=== PATIENT | female | born 1980 | race African-American/Black ===

== ENCOUNTER 2018-04-18 14:26 | Inpatient (IN) | payer OTHER ==
[2018-04-18 15:00] VITALS: BMI 23.4
[2018-04-18 15:25] LABS: Amnisure Test RUPTURE DETECTED (No Rupture)
[2018-04-18 15:26] LABS: Amnisure Internal Control QC ACCEPTABLE (ACCEPTABLE)
[2018-04-18] MEDS ORDERED: Betamet Acet/Betamet Na Ph 30 MG/5 ML VIAL ONE (15:54)
[2018-04-18] MEDS ORDERED: Ondansetron HCl/PF 4 MG/2 ML Vial IVP PRN (16:03)
[2018-04-18] MEDS ORDERED: Promethazine HCl 25 MG/ML VIAL IM PRN (16:03)
[2018-04-18] MEDS: Betamet Acet/Betamet Na Ph 30 MG/5 ML VIAL IM SCH (16:05)
--- NOTE | 2018-04-18 16:17 | PDOC.LDHP ---
Labor and Delivery H&P Chief complaint: loss of fluid HPI: 37 yo BF presents c/o leakage of fluid since 9AM. Denies UCs or bleeding. Current gestational age (weeks): 31 Due date: 06/16/18 Dating criteria: last menstrual period Grav: 2 Para: 1 OB History Details: PNC with Dr. Frye. Empirically started on GDM diet 2* to previous history in 1st . Current complications: none Abnormal US findings: No Current medications: pre- vitamins Previous surgical history: none Allergies/Adverse Reactions: Allergies Allergy/AdvReac Type Severity Reaction Status Date / Time No Known Drug Allergies Allergy Verified 09/14/16 18:22 Social history: none - Physical Exam Vital signs reviewed and normal: yes General: NAD Heart: RRR Lungs: CTAB Abdomen: gravid Extremeties: no edema FHT: variability present [place] contractions every: no UCs seen - OB Labs Blood type: unknown RH: unknown Antibody Screen: unknown HIV: unknown RPR: unknown HEPSAg: unknown 1 hour GCT: unknown GBS: unknown - Assessment L&D Assessment: premature rupture of membranes (31 4/7 week IUP, amniosure is positive) - Plan Plan: admit to L&D, GBS antibiotic prophylaxis (Begin steroids for FLM and Amp/ Armand IV VP3, GBS, and GC, chlamydia pending Deliver for labor, chorioamnionitis. Dr. Frye notified.)
[2018-04-18 16:34] LABS: Mean Corpuscular HGB CONC 34.1 g/dL (32.0-36.0); Mean Corpuscular Hemoglobin 29.4 pg (27.0-31.0); Mean Corpuscular Volume 86.2 fL (78.0-98.0); Mean Platelet Volume 8.7 fL (7.4-10.4); Platelet Count 184 thou/uL (130-400); RBC Distribution Width 11.9 % (11.5-14.5); Red Blood Cell (RBC) Count 3.75 mill/uL (4.20-5.40); White Blood Cell (WBC) Count 9.8 thou/uL (4.8-10.8)
--- NOTE | 2018-04-18 17:12 | PDOC.EVN ---
Event Note - Event Note Event Note: No UCs seen. 1st dose of steroids given. WBC= 9.8. USG= vtx, 3 lbs, 10 oz., TRUPTI= 9.9. Pharmacy called to say E-micin is not available at this time. Cont. present management. Deliver for chorioamnionitis, distress or labor.
[2018-04-18 17:21] LABS: Syphilis Antibody Nonreactive (Nonreactive); Syphilis Antibody Index 0.02 S/CO (<1.00 Non-Reactive)
[2018-04-18 17:25] LABS: HBSAg Index 0.17 S/CO (0-0.99); Hep B Surf Ag Non-Reactive S/CO (NonReactive)
[2018-04-18] MEDS ORDERED: Erythromycin 250 MG in Sodium Chloride 0.9% 250 ML 250 ML IVPB SCH (18:00)
[2018-04-18] MEDS: Lactated Ringer's 1,000 ML IV SCH (18:08)
[2018-04-18] MEDS: Ampicillin 2 GM in Sodium Chloride 0.9% 100 ML IVPB SCH ×2 (18:08→23:51)
--- NOTE | 2018-04-18 18:16 | ULT ---
OB ULTRASOUND: HISTORY: Thirty-one week gestation. IUP. Premature rupture of membranes. COMPARISON: None. TECHNIQUE: Sagittal and transverse imaging of the gravid uterus is performed. FINDINGS: Single intrauterine gestation. Presentation is cephalic. Limited evaluation of the cervix due to sh adowing. Placental location is to the maternal right. The presence or absence of previa cannot be assessed on this exam. heart tones with a rate of 133 beats per minute. BIOMETRY: BPD: 8.11 cm (32 weeks 4 days) HEAD CIRCUMFERENCE: 28.78 cm (31 weeks 5 days) ABDOMINAL CIRCUMFERENCE: 26.55 cm (30 weeks 5 days) FEMUR LENGTH: 5.80 cm (30 weeks 2 days) AVERAGE AGE BY SONOGRAPHY: 31 weeks 1 day ESTIMATED DELIVERY DATE: 06/19/2018 ESTIMATED WEIGHT: 1643, plus or minus 243 g AMNIOTIC FLUID INDEX: 9.9 IMPRESSION: Single intrauterine gestation with heart tones. Average age by sonography is 31 weeks 1 day. Estimated weight is 1643 g, plus or minus 243 g. POS: [facility]
[2018-04-19] MEDS: metroNIDAZOLE 250 MG TAB PO SCH ×4 (02:06→21:31)
[2018-04-19] MEDS: Lactated Ringer's 1,000 ML IV SCH ×2 (02:45→16:51)
[2018-04-19] MEDS: Ampicillin 2 GM in Sodium Chloride 0.9% 100 ML IVPB SCH ×3 (05:51→18:13)
[2018-04-19] MEDS ORDERED: Azithromycin 1,000 MG in Sodium Chloride 0.9% 500 ML IVPB ONE (09:00)
[2018-04-19] MEDS: Betamet Acet/Betamet Na Ph 30 MG/5 ML VIAL IM SCH (16:44)
[2018-04-19] MEDS ORDERED: HumaLOG 300 UNITS/3 ML VIAL SC SCH (22:00)
[2018-04-19 22:35] LABS: Chlamydia by PCR Not Detected (NotDetected); GC by PCR Not Detected (NotDetected)
[2018-04-20] MEDS: Ampicillin 2 GM in Sodium Chloride 0.9% 100 ML IVPB SCH ×4 (00:22→18:09)
[2018-04-20] MEDS ORDERED: HumaLOG 300 UNITS/3 ML VIAL SC SCH ×2 (00:45→13:15)
[2018-04-20] MEDS: Lactated Ringer's 1,000 ML IV SCH ×5 (02:37→21:51)
[2018-04-20] MEDS: metroNIDAZOLE 250 MG TAB PO SCH ×3 (09:03→20:48)
[2018-04-20] MEDS: Zolpidem Tartrate 5 MG TAB PO PRN (21:50)
[2018-04-21] MEDS: Ampicillin 2 GM in Sodium Chloride 0.9% 100 ML IVPB SCH ×2 (00:28→05:53)
[2018-04-21] MEDS: Lactated Ringer's 1,000 ML IV SCH (05:52)
[2018-04-21] MEDS: metroNIDAZOLE 250 MG TAB PO SCH ×3 (09:14→20:55)
--- NOTE | 2018-04-21 14:18 | PDOC.APC ---
Antepartum Consult INGRID JOHNSON is a 37 year old female at [32 0/7] gestational weeks. She presented with premature rupture of membranes not in labor. She has received betamethasone x2 and antibiotics. complicated by gestational diabetes. I was asked by Dr Frye to speak with the patient regarding anticipated course for a baby prematurely as early as 32 weeks. I outlined that the timing and mode of delivery is a decision that will be made by Dr. Frye. Once the patient is taken for delivery, the resuscitation team will be present. The initial focus will be on respiratory stabilization and may include minimal assistance, CPAP or intubation with surfactant administration, more invasive respiratory support more likely if born more prematurely. I discussed that the patient will need to be admitted to the NICU in an isolette due to temperature instability associated with prematurity if born before 36 weeks. We will then obtain IV access (peripheral will be first line, umbilical if unable to obtain peripheral) as babies are at risk for hypoglycemia. We discussed that babies born are at higher risk for feeding intolerance, infection and jaundice. I discussed that breastmilk is the best nutrition for babies and she is strongly encouraged to pump after delivery. Mother plans to breastfeed. We discussed that some premature babies need NG/OG tubes while learning how to eat by mouth. I explained that the duration of hospital stay will be determined on the clinical course of the baby. I outlined the milestones that needed to be achieved to ensure safe discharge home. She had the opportunity to ask questions and wanted to know about visitation. I explained that parents are welcome to visit 24/7 and skin to skin with kangaroo care is encouraged. Since there is not a plan currently to deliver at a certain gestation, we discussed that if she delivers at or after 36 weeks the baby would be admitted to the well baby nursery (unless other indication for NICU admission) and receive routine care. Please contact our service again if additional questions arise. I spent 20 minutes in consultation and coordination of care for this patient. Labs: Ante Labs Blood Type O POSITIVE 04/18/18 16:30 Hep Bs Antigen Non-Reactive S/CO (NonReactive) 04/18/18 16:30 Syphilis Ab negative
[2018-04-21] MEDS: AMOXicillin 250 MG CAP PO SCH (18:39)
[2018-04-21] MEDS: Zolpidem Tartrate 5 MG TAB PO PRN (23:05)
[2018-04-22] MEDS: AMOXicillin 250 MG CAP PO SCH ×4 (02:10→20:49)
[2018-04-22] MEDS: metroNIDAZOLE 250 MG TAB PO SCH ×3 (09:16→20:49)
[2018-04-23] MEDS: AMOXicillin 250 MG CAP PO SCH ×3 (09:11→20:51)
[2018-04-23] MEDS: metroNIDAZOLE 250 MG TAB PO SCH ×3 (09:13→20:51)
[2018-04-23] MEDS: Ampicillin 2 GM in Sodium Chloride 0.9% 100 ML IVPB SCH (11:27)
[2018-04-24] MEDS: metroNIDAZOLE 250 MG TAB PO SCH ×3 (09:21→21:30)
[2018-04-24] MEDS: AMOXicillin 250 MG CAP PO SCH ×3 (09:22→21:30)
[2018-04-25] MEDS: metroNIDAZOLE 250 MG TAB PO SCH ×3 (09:40→21:25)
[2018-04-25] MEDS: AMOXicillin 250 MG CAP PO SCH ×3 (09:40→21:25)
[2018-04-26] MEDS: metroNIDAZOLE 250 MG TAB PO SCH (09:13)
[2018-04-26] MEDS: AMOXicillin 250 MG CAP PO SCH ×3 (09:13→21:00)
[2018-04-27] MEDS: AMOXicillin 250 MG CAP PO SCH ×3 (09:50→21:20)
[2018-04-28] MEDS: AMOXicillin 250 MG CAP PO SCH ×3 (09:05→21:32)
[2018-04-29] MEDS: AMOXicillin 250 MG CAP PO SCH ×3 (08:44→20:55)
[2018-04-29] MEDS ORDERED: Acetaminophen 325 MG TAB PO PRN (17:43)
[2018-04-30] MEDS: AMOXicillin 250 MG CAP PO SCH ×3 (08:44→20:55)
[2018-05-01] MEDS: AMOXicillin 250 MG CAP PO SCH ×3 (09:34→21:05)
[2018-05-02] MEDS: AMOXicillin 250 MG CAP PO SCH ×3 (09:17→21:00)
[2018-05-02] MEDS: Ferrous Sulfate 325 MG TAB PO SCH (16:21)
[2018-05-02] MEDS ORDERED: HumaLOG 300 UNITS/3 ML VIAL SC SCH (18:30)
[2018-05-03] MEDS: Prenatal Vitamin 1 TAB PO SCH (09:59)
[2018-05-03] MEDS: Ferrous Sulfate 325 MG TAB PO SCH ×2 (09:59→16:30)
[2018-05-03] MEDS: AMOXicillin 250 MG CAP PO SCH ×3 (10:00→21:20)
[2018-05-04] MEDS ORDERED: CEFAZOLIN/Water 2 GM/20 ML SYRINGE ONE (07:30)
[2018-05-04] MEDS ORDERED: Bupivacaine 0.75% 13.4 ML, fentaNYL Citrate/PF 400 MCG in Sodium Chloride 0.9% 78.6 ML EPIDURAL SCH (07:30)
[2018-05-04] MEDS ORDERED: DISCONTINUE ALL PREVIOUS NARCOTICS FS SCH (07:30)
[2018-05-04] MEDS ORDERED: Ampicillin 2 GM in Sodium Chloride 0.9% 100 ML IVPB SCH (07:45)
[2018-05-04] MEDS ORDERED: Butorphanol Tartrate 1 MG/ML VIAL ONE (07:50)
[2018-05-04 07:51] LABS: Hemoglobin 10.9 g/dL (12.0-16.0); Mean Corpuscular HGB CONC 34.8 g/dL (32.0-36.0); Mean Corpuscular Hemoglobin 29.6 pg (27.0-31.0); Mean Platelet Volume 8.5 fL (7.4-10.4); Platelet Count 160 thou/uL (130-400); RBC Distribution Width 12.1 % (11.5-14.5); Red Blood Cell (RBC) Count 3.68 mill/uL (4.20-5.40); White Blood Cell (WBC) Count 13.6 thou/uL (4.8-10.8)
[2018-05-04] MEDS ORDERED: Lidocaine 1% (PF) 30 ML VIAL ONE (07:54)
[2018-05-04] MEDS: NS / Oxytocin 40 units/1000ml 1,000 ML ONE ×2 (08:01→09:49)
[2018-05-04] MEDS ORDERED: NS / Oxytocin 40 units/1000ml 1,000 ML ONE (09:25)
[2018-05-04] MEDS ORDERED: Ampicillin 1 GM in Sodium Chloride 0.9% 100 ML IVPB SCH (12:00)
[2018-05-04] MEDS ORDERED: Lanolin Ointment 7 GM TUBE TOP PRN (12:30)
[2018-05-04] MEDS ORDERED: NS / Oxytocin 40 units/1000ml 1,000 ML IV SCH (12:30)
[2018-05-04] MEDS ORDERED: Milk Of Magnesia 30 ML UDCUP PO PRN (12:30)
[2018-05-04] MEDS ORDERED: Bisacodyl 10 MG SUPP PR PRN (12:30)
[2018-05-04] MEDS ORDERED: Ondansetron HCl/PF 4 MG/2 ML Vial IVP PRN (12:30)
[2018-05-04] MEDS ORDERED: Preparation H Ointment 28 GM TUBE PR PRN (12:30)
[2018-05-04] MEDS ORDERED: Adacel (T-DAP) 0.5 ML VIAL IM ONE (12:30)
[2018-05-04] MEDS ORDERED: HYDROcodone/Acetaminophen 5/325 mg Tablet PO PRN ×2 (12:30)
[2018-05-04] MEDS ORDERED: Benzocaine/Menthol 20-0.5% 60 ML CAN TOP PRN (12:30)
[2018-05-04] MEDS: Ibuprofen 800 MG TAB PO SCH ×2 (12:51→20:22)
[2018-05-04] MEDS ORDERED: Prenatal Vitamin 1 TAB PO SCH (13:00)
[2018-05-04] MEDS ORDERED: Docusate Calcium (SURFAK) 240 MG CAP PO SCH (13:00)
[2018-05-04] MEDS: Ferrous Sulfate 325 MG TAB PO SCH ×2 (13:06→18:15)
[2018-05-04] MEDS: AMOXicillin 250 MG CAP PO SCH (13:06)
[2018-05-04] MEDS: Prenatal Vitamin 1 TAB PO SCH (13:06)
[2018-05-04] MEDS: Docusate Calcium (SURFAK) 240 MG CAP PO SCH (20:22)
[2018-05-05] MEDS: Ibuprofen 800 MG TAB PO SCH ×2 (05:48→14:17)
[2018-05-05 06:07] LABS: Hemoglobin 10.5 g/dL (12.0-16.0); Mean Corpuscular HGB CONC 34.3 g/dL (32.0-36.0); Mean Corpuscular Hemoglobin 29.6 pg (27.0-31.0); Mean Corpuscular Volume 86.2 fL (78.0-98.0); Mean Platelet Volume 8.2 fL (7.4-10.4); Platelet Count 173 thou/uL (130-400); RBC Distribution Width 12.2 % (11.5-14.5); Red Blood Cell (RBC) Count 3.56 mill/uL (4.20-5.40); White Blood Cell (WBC) Count 12.9 thou/uL (4.8-10.8)
[2018-05-05 08:08] VITALS: BP 106/67; TEMP 98.3
[2018-05-05] MEDS ORDERED: Prenatal Vitamin 1 TAB PO SCH (09:00)
[2018-05-05] MEDS: Ferrous Sulfate 325 MG TAB PO SCH (09:41)
[2018-05-05] MEDS: Docusate Calcium (SURFAK) 240 MG CAP PO SCH (09:43)
== END 2018-05-05 18:30 | disposition home or self-care (01) | DRG 775 ==
LOC: L&D/OP 14:26 → L&D 16:53 → L&D-LIB 04-22 10:04 → L&D 05-04 07:38 → 3SW 05-04 11:47
PROVIDERS: ADMIT Family Medicine; ATTEND Family Medicine
PROC: 3E0233Z Introduction of Anti-inflammatory into Muscle, Percutaneous Approach (ICD-10-PCS; principal; 2018-04-18)
PROC: 10E0XZZ Delivery of Products of Conception, External Approach (ICD-10-PCS; 2018-05-04)
DX: O60.14X0 Preterm labor third trimester with preterm delivery third trimester, not applicable or unspecified (principal); Z37.0 Single live birth; O24.420 Gestational diabetes mellitus in childbirth, diet controlled; O69.81X0 Labor and delivery complicated by cord around neck, without compression, not applicable or unspecified; O42.113 Preterm premature rupture of membranes, onset of labor more than 24 hours following rupture, third trimester; Z3A.31 31 weeks gestation of pregnancy
CPT/HCPCS: 36415; 36416; 59025; 76805; 84112; 85027; 86780; 86850; 86900; 86901; 87081; 87340; 87480; 87491; 87510; 87591; 87660; 88307; 99285; A4216; J0290; J0456; J0595; J0702; J1364; J2001; J3010; J7050

== ENCOUNTER 2022-02-25 10:48 | Outpatient (CLI) | payer BC | END 2022-02-25 10:49 | disposition home or self-care (01) | LOC: BICMAMMO 10:48 | PROVIDERS: ATTEND Nurse Practitioner Family | DX: Z12.31 Encounter for screening mammogram for malignant neoplasm of breast (principal) | CPT/HCPCS: 77063; 77067 ==

== ENCOUNTER 2023-04-01 08:28 | Outpatient (CLI) | payer BC | END 2023-04-01 08:29 | disposition home or self-care (01) | LOC: BICRAD 08:28 | PROVIDERS: ATTEND Nurse Practitioner Family | DX: R05.3 Chronic cough (principal) | CPT/HCPCS: 71046 ==